=== PATIENT | female | born 1975 | race Caucasian/White ===

== ENCOUNTER 2021-11-07 08:46 | Emergency (ER) | payer OTHER | END 2021-11-07 10:15 | disposition home or self-care (01) | LOC: FER 08:46 | DX: M77.8 Other enthesopathies, not elsewhere classified (principal) | CPT/HCPCS: 73030 ==

== ENCOUNTER → 2021-11-30 | Day surgery (SDC) | payer OTHER ==
[~2021-11-30] VITALS: Ht 160 cm; Wt 70.3 kg
[~2021-11-30] MED LIST: IBUPROFEN800 M1 PO; MISOPROSTOL200 MCG VG
[2021-11-30 07:34] LABS: HCG (URINE) SCREEN NEGATIVE (NEGATIVE)
== END | disposition home or self-care (01) ==
LOC: FAS 07:01
PROVIDERS: Obstetrics & Gynecology
DX: N93.9 Abnormal uterine and vaginal bleeding, unspecified (principal); N88.2 Stricture and stenosis of cervix uteri; M19.90 Unspecified osteoarthritis, unspecified site; F17.200 Nicotine dependence, unspecified, uncomplicated; Z98.890 Other specified postprocedural states
CPT/HCPCS: 84703; J1100; J1885; J2250; J2405; J2704; J3010; J7120